=== PATIENT | male | born 1945 | race Caucasian/White ===

== ENCOUNTER 2017-05-08 12:55 | Outpatient (CLI) | payer OTHER ==
--- NOTE | 2017-05-12 15:25 | DIAGNOSTIC IMAGING REPORT ---
REFERRING PHYSICIAN/PROVIDER: Luca Toney MD CONSULTING DATA WAREHOUSE DEVELOPER: Gerard Parker MD PROCEDURE: M-mode 2D echocardiography with spectral and color flow Doppler TECHNICAL QUALITY: Fair INDICATION: MURMMER, EDEMA ANKLE; CHEST PAIN RHYTHM DURING PROCEDURE: Atrial fibrillation INTERPRETATIONS: LEFT VENTRICLE: There is mild concentric left ventricular hypertrophy. The posterior wall measures 1.3 cm and the septal wall is 1.2 cm. The is mild left ventricular enlargement. There is normal left ventricular systolic function ( LVEF = 62%). Grade I diastolic dysfunction. RIGHT VENTRICLE: There is a dilated right ventricle with mild to moderately reduced systolic function ATRIA: Severe biatrial enlargement. MITRAL VALVE: There is trace mitral regurgitation AORTIC VALVE: The aortic valve is trileaflet. There is aortic sclerosis without evidence of aortic stenosis. There is no aortic regurgitation. TRICUSPID VALVE: Normal tricuspid valve leaflets. There is trace tricuspid regurgitation. The estimated right ventricular systolic pressure is 48 mmHg. PULMONIC VALVE: There is trace pulmonic regurgitation GREAT VESSELS: Mildly dilated ascending aorta 3.9 cm. PERICARDIUM: No evidence of a pericardial effusion. IMPRESSION: 1. Mild concentric left ventricular hypertrophy 2. Mildly dilated left ventricle with normal left ventricular systolic function (LVEF = 62%) 3. Mildly dilated right ventricle with mildly reduced right ventricular systolic function 4. Severe biatrial enlargement 5. Mild aortic sclerosis without stenosis 6. Moderately increased right ventricular systolic pressure (RVSP = 48 mmHg) 7. Mildly dilated ascending aorta 3.9 cm
== END 2017-05-08 23:00 | disposition home or self-care (01) ==
LOC: US SRH 12:55
DX: I48.2 Chronic atrial fibrillation (principal); I51.7 Cardiomegaly